=== PATIENT | male | born 1980 | race African-American/Black ===

== ENCOUNTER 2018-03-17 21:38 | Emergency (ER) | payer BC ==
[~2018-03-17] VITALS: Ht 175.3 cm; Wt 73.0 kg
[2018-03-17 21:49] VITALS: BP_SYST 140
[2018-03-17] MEDS ORDERED: IBUPROFEN 800 MG TABLET PO ONE (22:45)
[2018-03-17 23:17] VITALS: BP_SYST 132
== END 2018-03-17 23:17 | disposition home or self-care (01) ==
LOC: SED 21:38
DX: S83.91XA Sprain of unspecified site of right knee, initial encounter (principal); X50.1XXA Overexertion from prolonged static or awkward postures, initial encounter; Y93.67 Activity, basketball; Y92.89 Other specified places as the place of occurrence of the external cause; Y99.8 Other external cause status
CPT/HCPCS: 73564; 99284